=== PATIENT | female | born 1965 | race African-American/Black ===

== ENCOUNTER 2019-11-15 09:12 | Emergency (ER) | payer OTHER ==
[~2019-11-15] VITALS: Ht 165.1 cm; Wt 104.3 kg
[2019-11-15 09:26] VITALS: BP 159/93
== END 2019-11-15 10:15 | disposition home or self-care (01) ==
LOC: ER 09:12
DX: I10 Essential (primary) hypertension (principal); Z76.0 Encounter for issue of repeat prescription

== ENCOUNTER → 2019-12-10 | Outpatient (CLI) | payer OTHER ==
[2019-12-10 17:03] LABS: Basophils # (auto) 0.1 10 ^3/uL (0-0.2); Basophils % (auto) 1.1 % (0.0-2.0); Eosinophils # (auto) 0.1 10 ^3/uL (0-0.8); Eosinophils % (auto) 1.8 % (0.0-7.0); Hematocrit 40.5 % (36.0-46.0); Hemoglobin 13.8 g/dL (12.2-16.2); Lymphocytes # (auto) 2.3 10 ^3/uL (0.4-5.4); Lymphocytes % (auto) 40.6 % (10.0-50.0); Mean Corpuscular Hemoglobin 30.3 pg (28.0-32.0); Mean Corpuscular Volume 89.1 fL (80.0-100.0); Monocytes # (auto) 0.7 10 ^3/uL (0-1.3); Monocytes % (auto) 12.9 % (0.0-12.0); Neutrophils # (auto) 2.5 10 ^3/uL (1.6-8.6); Neutrophils % (auto) 43.6 % (37.0-80.0); Nucleated Red Blood Cells % 0.1 %; Platelet Count (auto) 263 10^3/uL (140-450); Red Blood Cells 4.54 10^6/uL (4.0-5.20); Red Cell Distribution Width 13.6 % (11.8-14.3); White Blood Cell 5.7 10^3/uL (4.4-10.8)
[2019-12-10 17:20] LABS: Albumin 3.7 g/dL (3.4-5.0); Calcium 9.3 mg/dL (8.5-10.1); Potassium 4.5 mmol/L (3.5-5.1)
[2019-12-10 17:25] LABS: BUN/Creatinine Ratio 11.8; Bilirubin, Total 0.3 mg/dL (0.2-1.0); Total Protein 8.2 g/dL (6.4-8.2)
== END | disposition home or self-care (01) ==
LOC: LAB 16:38
PROVIDERS: ATTEND Internal Medicine
DX: Z13.29 Encounter for screening for other suspected endocrine disorder (principal); E78.5 Hyperlipidemia, unspecified; Z13.0 Encounter for screening for diseases of the blood and blood-forming organs and certain disorders involving the immune mechanism; Z13.228 Encounter for screening for other metabolic disorders
CPT/HCPCS: 36415; 80053; 80061; 83036; 84443; 85025

== ENCOUNTER → 2019-12-27 | Outpatient (CLI) | payer OTHER | END | disposition home or self-care (01) | LOC: LAB 09:42 | PROVIDERS: ATTEND Internal Medicine | DX: Z13.228 Encounter for screening for other metabolic disorders (principal); Z13.0 Encounter for screening for diseases of the blood and blood-forming organs and certain disorders involving the immune mechanism; Z13.29 Encounter for screening for other suspected endocrine disorder; E78.5 Hyperlipidemia, unspecified | CPT/HCPCS: 82274 ==

== ENCOUNTER 2021-06-12 13:53 | Emergency (ER) | payer OTHER ==
[~2021-06-12] VITALS: Ht 165.1 cm; Wt 95.3 kg
[2021-06-12 15:55] VITALS: BP 141/72
== END 2021-06-12 15:58 | disposition home or self-care (01) ==
LOC: ER 13:53
DX: I10 Essential (primary) hypertension (principal)

== ENCOUNTER → 2021-09-02 | Outpatient (CLI) | payer OTHER | END | disposition home or self-care (01) | LOC: LAB 11:00 | PROVIDERS: ATTEND Family Medicine | DX: L72.0 Epidermal cyst (principal); L72.3 Sebaceous cyst | CPT/HCPCS: 88302 ==

== ENCOUNTER 2021-11-30 13:01 | Day surgery (SDC) | payer OTHER ==
[2021-11-28 11:50] LABS: Basophils # (auto) 0 10 ^3/uL (0-0.2); Basophils % (auto) 0.9 % (0.0-2.0); Eosinophils # (auto) 0.1 10 ^3/uL (0-0.8); Eosinophils % (auto) 1.4 % (0.0-7.0); Hematocrit 37.6 % (36.0-46.0); Hemoglobin 12.6 g/dL (12.2-16.2); Lymphocytes # (auto) 2.3 10 ^3/uL (0.4-5.4); Mean Corpuscular Hemoglobin 29.8 pg (28.0-32.0); Mean Corpuscular Hgb Conc. 33.5 g/dL (32.0-36.0); Mean Corpuscular Volume 88.9 fL (80.0-100.0); Monocytes # (auto) 0.6 10 ^3/uL (0-1.3); Monocytes % (auto) 11.5 % (0.0-12.0); Neutrophils # (auto) 2.5 10 ^3/uL (1.6-8.6); Neutrophils % (auto) 45.2 % (37.0-80.0); Nucleated Red Blood Cells % 0.3 %; Red Blood Cells 4.23 10^6/uL (4.0-5.20); Red Cell Distribution Width 13.9 % (11.8-14.3); White Blood Cell 5.5 10^3/uL (4.4-10.8)
[2021-11-28 12:09] LABS: INR 1.05 (0.9-1.15); Partial Thromboplastin Time 24.1 sec (23.6-33.0)
[2021-11-28 12:12] LABS: Albumin 3.5 g/dL (3.4-5.0); Calcium 9.2 mg/dL (8.5-10.1); Potassium 4.7 mmol/L (3.5-5.1)
[2021-11-28 12:15] LABS: BUN/Creatinine Ratio 9.2; Bilirubin, Total 0.3 mg/dL (0.2-1.0)
[~2021-11-30] VITALS: Ht 165.1 cm; Wt 98.4 kg
[~2021-11-30 13:01] MED LIST: LISI2.5T47 PO
[2021-11-30] MEDS ORDERED: MIDAZOLAM HCL 5 MG/ML-1ML VIAL ONE (13:46)
[2021-11-30] MEDS ORDERED: diphenhdrAMINE HCL 50 MG/1 ML VL ONE (13:46)
[2021-11-30] MEDS ORDERED: fentaNYL CITRATE 100 MCG/2 ML VL ONE (13:46)
[2021-11-30 16:00] VITALS: BP 140/62
== END 2021-11-30 16:00 | disposition home or self-care (01) ==
LOC: GI 13:01
PROVIDERS: ATTEND Internal Medicine Gastroenterology
DX: Z12.11 Encounter for screening for malignant neoplasm of colon (principal); K64.8 Other hemorrhoids; K63.89 Other specified diseases of intestine; I10 Essential (primary) hypertension; Z90.710 Acquired absence of both cervix and uterus; Z20.822 Contact with and (suspected) exposure to COVID-19
CPT/HCPCS: 36415; 45378; 80053; 85025; 85610; 85730; J1200; J2250; J3010; J7030; U0003; 99152

== ENCOUNTER → 2023-11-27 | Outpatient (CLI) | payer OTHER ==
[2023-11-27 08:23] LABS: Urine Bacteria FEW /hpf (None Seen); Urine Blood Negative /uL (Negative); Urine Clarity Turbid (Clear); Urine Color Yellow (Yellow); Urine Hyaline Cast FEW /lpf (0 - 2); Urine Mucus FEW (None Seen); Urine Protein, UAD Negative (Negative); Urine Specific Gravity 1.017 (1.001-1.035); Urine Urobilinogen Normal (Negative); Urine WBC 4 /hpf (0 - 5); Urine pH 5.5 (5.0-9.0)
[2023-11-27 08:28] LABS: Triglycerides 61 mg/dL (< 150)
[2023-11-27 08:29] LABS: Cholesterol 141 mg/dL (< 200); LDL Cholesterol 79 mg/dL (< 100)
[2023-11-27 08:30] LABS: HDL Cholesterol 48 mg/dL (40-59)
== END | disposition home or self-care (01) ==
LOC: LAB 07:47
PROVIDERS: ATTEND Internal Medicine
DX: E78.2 Mixed hyperlipidemia (principal); R82.90 Unspecified abnormal findings in urine
CPT/HCPCS: 36415; 80061; 81001

== ENCOUNTER → 2024-01-08 | Outpatient (CLI) | payer OTHER ==
[2024-01-08 07:30] LABS: Urine Bacteria None Seen /hpf (None Seen)
[2024-01-08 07:33] LABS: Basophils # (auto) 0 10 ^3/uL (0-0.2); Basophils % (auto) 0.7 % (0.0-2.0); Eosinophils # (auto) 0.1 10 ^3/uL (0-0.8); Eosinophils % (auto) 1.5 % (0.0-7.0); Hemoglobin 13.5 g/dL (12.2-16.2); Lymphocytes # (auto) 2.8 10 ^3/uL (0.4-5.4); Lymphocytes % (auto) 53.9 % (10.0-50.0); Mean Corpuscular Hemoglobin 29.5 pg (28.0-32.0); Mean Corpuscular Hgb Conc. 33.9 g/dL (32.0-36.0); Mean Corpuscular Volume 87.1 fL (80.0-100.0); Monocytes # (auto) 0.5 10 ^3/uL (0-1.3); Monocytes % (auto) 9.7 % (0.0-12.0); Neutrophils # (auto) 1.8 10 ^3/uL (1.6-8.6); Neutrophils % (auto) 34.2 % (37.0-80.0); Nucleated Red Blood Cells % 0.1 %; Red Blood Cells 4.59 10^6/uL (4.0-5.20); Red Cell Distribution Width 14.2 % (11.8-14.3); White Blood Cell 5.2 10^3/uL (4.4-10.8)
[2024-01-08 08:14] LABS: Alanine Aminotransferase 13 U/L (7-40); Alkaline Phosphatase 106 U/L (46-116); Anion Gap 5 (5-15); Aspartate Aminotransferase 15 U/L (13-40); BUN/Creatinine Ratio 10.8 (10.0-20.0); Blood Urea Nitrogen 9 mg/dL (9-23); Calcium 9.5 mg/dL (8.7-10.4); Carbon Dioxide 28 mmol/L (20-30); Chloride 106 mmol/L (98-107); Glucose 108 mg/dL (74-106); Potassium 4.1 mmol/L (3.5-5.1); Sodium 139 mmol/L (136-145)
[2024-01-08 08:15] LABS: Albumin 4.4 g/dL (3.2-4.8); Bilirubin, Total 0.6 mg/dL (0.2-1.0); Total Protein 7.6 g/dL (5.7-8.2)
[2024-01-08 08:53] LABS: Urine Blood Negative /uL (Negative); Urine Clarity Turbid (Clear); Urine Color Yellow (Yellow); Urine Protein, UAD Negative (Negative); Urine Specific Gravity 1.022 (1.001-1.035); Urine Urobilinogen Normal (Negative); Urine WBC 2 /hpf (0 - 5); Urine pH 6.5 (5.0-9.0)
== END | disposition home or self-care (01) ==
LOC: LAB 07:22
PROVIDERS: ATTEND Internal Medicine
DX: Z13.1 Encounter for screening for diabetes mellitus (principal); Z00.01 Encounter for general adult medical examination with abnormal findings; I10 Essential (primary) hypertension; R94.4 Abnormal results of kidney function studies; R82.90 Unspecified abnormal findings in urine; E78.2 Mixed hyperlipidemia
CPT/HCPCS: 36415; 80053; 81001; 83036; 84439; 84443; 85025